=== PATIENT | female | born 1955 | race Caucasian/White ===

== ENCOUNTER → 2017-06-05 | Outpatient (CLI) | payer OTHER | LOC: BMCIMAGING 08:39 | PROVIDERS: ATTEND Family Medicine | DX: Z12.31 Encounter for screening mammogram for malignant neoplasm of breast (principal) | CPT/HCPCS: G0202 ==

== ENCOUNTER 2017-07-22 17:00 | Emergency (ER) | payer OTHER ==
[2017-07-22 17:22] VITALS: BP 141/84; RESP 20; TEMP 98.2; O2SAT 93
--- NOTE | 2017-07-22 17:25 | EDPHY ---
H & P Time Seen by Provider: 07/22/17 17:11 HPI/ROS: CHIEF COMPLAINT: External hemorrhoid HISTORY OF PRESENT ILLNESS: Patient is a 62-year-old female who comes to the emergency department complaining of an external painful hemorrhoid. It has been present for several weeks but is becoming more painful. No bleeding. No discharge. She has been using [id number] creams with no success. She has been taking Dulcolax daily as a stool softener and does not feel constipated. She has been doing Sitz baths but states that they do not help. No fever. REVIEW OF SYSTEMS: Constitutional: denies: chills, fever, recent illness, recent injury EENTM: denies: blurred vision, double vision, nose congestion Respiratory: denies: cough, shortness of breath Cardiac: denies: chest pain, irregular heart rate, lightheadedness, palpitations Gastrointestinal/Abdominal: See HPI Genitourinary: denies: dysuria, frequency, hematuria, pain Musculoskeletal: denies: joint pain, muscle pain Skin: denies: lesions, rash, jaundice, bruising Neurological: denies: headache, numbness, paresthesia, tingling, dizziness, weakness Hematologic/Lymphatic: denies: blood clots, easy bleeding, easy bruising Immunologic/allergic: denies: HIV/AIDS, transplant EXAM: GENERAL: Well-appearing, well-nourished and in no acute distress. HEAD: Atraumatic, normocephalic. EYES: Pupils equal round and reactive to light, extraocular movements intact, sclera anicteric, conjunctiva are normal. ENT: TMs normal, nares patent, oropharynx clear without exudates. Moist mucous membranes. NECK: Normal range of motion, supple without lymphadenopathy or JVD. LUNGS: Breath sounds clear to auscultation bilaterally and equal. No wheezes rales or rhonchi. HEART: Regular rate and rhythm without murmurs, rubs or gallops. ABDOMEN: Soft, nontender, normoactive bowel sounds. No guarding, no rebound. No masses appreciated. : Patient has a 2 x 3 cm external hemorrhoid at 9 o'clock. It is tender. No bleeding. Soft. BACK: No CVA tenderness, no spinal tenderness, step-offs or deformities EXTREMITIES: Normal range of motion, no pitting or edema. No clubbing or cyanosis. NEUROLOGICAL: Cranial nerves II through XII grossly intact. Normal speech, normal gait. 5/5 strength, normal movement in all extremities, normal sensation PSYCH: Normal mood, normal affect. SKIN: Warm, dry, normal turgor, no visible rashes or lesions. Source: Patient Exam Limitations: No limitations - Medical/Surgical History Hx Asthma: No Hx Chronic Respiratory Disease: No Hx Diabetes: No Hx Cardiac Disease: No Hx Renal Disease: No Hx Cirrhosis: No Hx Alcoholism: No Other PMH: C section, bunionectomy x2. Rt shoulder lipoma removed. - Family History Significant Family History: No pertinent family hx - Social History Smoking Status: Never smoked Alcohol Use: Sober Drug Use: None Constitutional: Initial Vital Signs Temperature (C) 36.8 C 07/22/17 17:18 Heart Rate 78 07/22/17 17:18 Respiratory Rate 20 07/22/17 17:18 Blood Pressure 141/84 H 07/22/17 17:18 O2 Sat (%) 93 07/22/17 17:18 O2 Delivery Mode Room Air Allergies/Adverse Reactions: RAW CARROTS Allergy (Severe, Uncoded 07/22/17 17:13) SWELLING MOUTH AND THROAT RAW CELERY Allergy (Severe, Uncoded 07/22/17 17:13) SWELLING MOUTH AND THROAT RAW PEPPERS Allergy (Severe, Uncoded 07/22/17 17:13) SWELLING MOUTH AND THROAT VICRYL SUTURES Allergy (Intermediate, Uncoded 07/22/17 17:13) WOUND DEHISCENCE Home Medications: Medication Instructions Recorded Levothyroxine [Synthroid 100 mcg 01/28/16 (*)] Polymyxin B Sulfate/Tmp [Polytrim 1 drops EACHEYE QID 5 Days 01/28/16 Opht Drops (RX)] Tolterodine Tartrate [Detrol LA 01/28/16 2MG (RX)] GABAPENTIN 07/22/17 Lidocaine [Lidocaine 5% oint] 60 gm TP BID #1 oint...g. 07/22/17 Medical Decision Making ED Course/Re-evaluation: The patient has a painful external hemorrhoid. It is not thrombosed on clinical exam. We discussed adding a steroid cream or using preparation H with steroid. We also discussed lidocaine cream for pain control. She does not wish to have narcotics which would further constipate her. We discussed bulking agents and laxatives. We discussed Sitz baths. I will refer her to surgery for possibly hemorrhoidectomy. Differential Diagnosis: Partial list of the Differential diagnosis considered include but were not limited to; external hemorrhoid, internal hemorrhoid, thrombosed hemorrhoid and although unlikely based on the history and physical exam, I also considered herniation, prolapse. I discussed these differential diagnoses and the plan with the patient as well as the usual and expected course. The patient understands that the diagnosis is provisional and that in medicine we are not always correct and that further workup is often warranted. Usual and customary warnings were given. All of the patient's questions were answered. The patient was instructed to return to the emergency department should the symptoms at all worsen or return, otherwise to followup with the physician as we discussed. Departure - Departure Disposition: Home, Routine, Self-Care Clinical Impression: External hemorrhoid Condition: Fair Instructions: Hemorrhoids (ED) Referrals: NONE *PRIMARY CARE P,. [Primary Care Provider] - As per Instructions Billy Buckley MD [Medical Doctor] - As per Instructions Prescriptions: Lidocaine [Lidocaine 5% oint] 60 gm TP BID #1 oint...g.
[2017-07-22 19:14] VITALS: PULSE 73
== END 2017-07-22 17:37 | disposition home or self-care (01) ==
LOC: CED 17:00
DX: K64.4 Residual hemorrhoidal skin tags (principal)

== ENCOUNTER → 2018-06-04 | Outpatient (CLI) | payer OTHER | LOC: BMCIMAGING 10:40 | PROVIDERS: ATTEND Internal Medicine | DX: Z12.31 Encounter for screening mammogram for malignant neoplasm of breast (principal) ==

== ENCOUNTER → 2019-01-03 | Outpatient (CLI) | payer OTHER ==
[~2019-01-03] MED LIST: IOPAMIDOL (ISOVUE-300) 100 ML BTL ONE
== END ==
LOC: EMCIMAGING 08:30
PROVIDERS: ATTEND Physician Assistant Medical
DX: N28.1 Cyst of kidney, acquired (principal); D25.9 Leiomyoma of uterus, unspecified
CPT/HCPCS: Q9967